=== PATIENT | female | born 1960 | race Caucasian/White ===

== ENCOUNTER 2023-03-14 09:43 | Day surgery (SDC) | payer BC ==
[2023-03-11 16:07] VITALS: BMI 37.0
[2023-03-14] MEDS ORDERED: PROPOFOL 60 ML ONE (10:11)
[2023-03-14] MEDS ORDERED: Lidocaine 4% PF 5 ML AMP ONE (10:11)
[2023-03-14] MEDS ORDERED: Midazolam HCl 2 mg/2 ml Vial ONE (10:12)
== END 2023-03-14 12:00 | disposition home or self-care (01) ==
LOC: CSHSDC 09:43
PROVIDERS: ATTEND Internal Medicine Gastroenterology
PROC: 0DJD8ZZ Inspection of Lower Intestinal Tract, Via Natural or Artificial Opening Endoscopic (ICD-10-PCS; principal; 2023-03-14)
DX: K64.8 Other hemorrhoids (principal); K57.30 Diverticulosis of large intestine without perforation or abscess without bleeding; I10 Essential (primary) hypertension; E03.9 Hypothyroidism, unspecified; I48.91 Unspecified atrial fibrillation; J45.909 Unspecified asthma, uncomplicated; Z88.1 Allergy status to other antibiotic agents; Z88.2 Allergy status to sulfonamides
CPT/HCPCS: J2250; J2704